=== PATIENT | female | born 1945 | race Caucasian/White ===

== ENCOUNTER 2019-03-24 11:39 | Emergency (ER) | payer MEDICARE, OTHER ==
--- OUTSIDE RECORDS SUMMARY | 2019-03-24 12:58 | XMS REPORT | Continuity of Care Document ---
:1945 External Reference #:[id number] Author Name Yoni Martino M.D. Address [address] [place] [address] Care Team Providers Name Role Phone Ernesto Salcido O.D. - Engine Buildup Mechanic Care Team Information Airplane Electrical Repairer [phone] Su Camara M.D. - Internal Care Team Information Airplane Electrical Repairer [phone] Medicine Problems Active Problems Provider Date Neck pain Yoni Martino M.D. Onset: 03/04/2019 Hypertensive disorder Yoni Martino M.D. Onset: 03/04/2019 Familial combined hyperlipidemia Yoni Martino M.D. Onset: 03/04/2019 Basal cell carcinoma of skin Yoni Martino M.D. Onset: 03/04/2019 Seasonal allergic rhinitis Yoni Martino M.D. Onset: 03/04/2019 Vitreous degeneration Yoni Martino M.D. Onset: 03/04/2019 Combined form of senile cataract Yoni Martino M.D. Onset: 03/04/2019 Social History Type Date Description Comments Sex Unknown ETOH Use Occasionally consumes alcohol Tobacco Use Start: Unknown Patient has never smoked Recreational Drug Use Denies Drug Use Smoking Status Reviewed: 03/04/19 Patient has never smoked Allergies, Adverse Reactions, Alerts Active Allergies Reaction Severity Comments Date NKDA 03/04/2019 Adhesive 03/04/2019 Medications Active Medications SIG Qnty Indications Ordering Provider Date Acetaminophen 2 x per day. Yoni Martino, 03/04/2019 500mg Tablets M.D. Atorvastatin Calcium Unknown 20mg Tablets Vitamin D3-Vitamin C Unknown [id number] Capsules Zyrtec Allergy as needed Unknown 10mg Capsules Vitamin B 12 Unknown 500mcg Tablets Doxycycline Hyclate Unknown 20mg Tablets Fish Oil 1 by mouth every Unknown 1000mg Capsules day Immunizations Description No Information Available Vital Signs Description No Information Available Results Description No Information Available Procedures Description No Information Available Medical Devices Description No Information Available Encounters Description No Information Available Assessments Date Code Description Provider 03/04/2019 H25.813 Combined forms of age-related cataract, Yoni Martino M.D. bilateral 03/04/2019 H43.813 Vitreous degeneration, bilateral Yoni Martino M.D. Plan of Treatment 03/04/2019 - Yoni Martino M.D.H25.813 Combined forms of age-related cataract , bilateralComments:Smoking can increase the risk of developing or worsening any eye related disease, as well as affect your overall health. If you are a smoker, we strongly recommend that you quit.If you are not a smoker, we strongly recommend that you do not start. You have been diagnosed with cataracts. They are limiting your vision, and I am unable to improve you with new glasses. Our next step is to schedule Cataract surgery and all necessary appointments, which Melissa will do for you. We recommend that you write down any questions you may have and bring them to your preoperative appointment so that Dr. Jaimes answer them for you. If you have any questions or concerns, you can reach Melissa Varela at .Follow up:For preop exam before surgery.H43.813 Vitreous degeneration, bilateralComments:You have a Posterior Vitreous Detachment. If you have any changes in your floaters or flashing lights, please contact this office. Functional Status Description No Information Available Mental Status Description No Information Available Referrals Description No Information Available
[2019-03-24 13:02] VITALS: BP 157/91
[2019-03-24] MEDS ORDERED: Albuterol/Ipratropium NEB.SOL* Albuterol 2.5 MG/Ipratropium 0.5 MG 3 ML INH ONE (13:34)
--- NOTE | 2019-03-24 13:47 | UC ---
Respiratory Complaint HPI - HPI Summary HPI Summary: 5 DAYS OF COUGH, NASAL CONGESTION, POSTNASAL DRAINAGE, EAR FULLNESS. FEELS WHEEZY. NO FEVER, NAUSEA/VOMITING. NO BODY ACHES. - History of Current Complaint Chief Complaint: UCGeneralIllness Stated Complaint: HEAD, CHEST CONGESTION, SORE THROAT Time Seen by Provider: 03/24/19 13:20 Hx Obtained From: Patient Onset/Duration: Gradual Onset, Lasting Days, Still Present Timing: Constant Severity Initially: Moderate Severity Currently: Moderate Pain Intensity: 0 Pain Scale Used: 0-10 Numeric Character: Cough: Nonproductive Aggravating Factors: Nothing Alleviating Factors: Nothing Associated Signs And Symptoms: Positive: Wheezing, URI, Nasal Congestion, Sinus Discomfort. Negative: Dyspnea, Fever - Allergies/Home Medications Allergies/Adverse Reactions: Allergies Allergy/AdvReac Type Severity Reaction Status Date / Time Adhesive Tape Allergy Rash Verified 03/24/19 13:03 Home Medications: Home Medications Fluticasone NASAL SPRAY 50MCG* [Flonase NASAL SPRAY 50MCG*] 1 mg BOTH NARES DAILY WITH MEAL 03/24/19 [History Confirmed 03/24/19] PMH/Surg Hx/FS Hx/Imm Hx Endocrine History: Dyslipidemia - Surgical History Surgical History: Yes Surgery Procedure, Year, and Place: HYSTERECTOMY - - Family History Known Family History: Positive: Non-Contributory - Social History Alcohol Use: Occasionally Substance Use Type: None Smoking Status (MU): Never Smoked Tobacco Review of Systems All Other Systems Reviewed And Are Negative: Yes Constitutional: Positive: Fatigue ENT: Positive: Nasal Discharge, Sinus Congestion, Sinus Pain/Tenderness Respiratory: Positive: Cough, Other - WHEEZY Cardiovascular: Positive: Negative Gastrointestinal: Positive: Negative Neurological: Positive: Headache Physical Exam Triage Information Reviewed: Yes Appearance: Well-Appearing, No Pain Distress, Well-Nourished Vital Signs: Initial Vital Signs Temp 97.9 F 03/24/19 12:59 Pulse 87 03/24/19 12:59 Resp 19 03/24/19 12:59 BP 157/91 03/24/19 12:59 Pulse Ox 97 03/24/19 12:59 Vital Signs Reviewed: Yes Eyes: Positive: Conjunctiva Clear ENT: Positive: Hearing grossly normal, Pharynx normal, TMs normal, Sinus tenderness Neck: Positive: Supple, Nontender, No Lymphadenopathy Respiratory Exam: Normal Cardiovascular Exam: Normal Abdomen Description: Positive: Soft Musculoskeletal: Positive: No Edema Neurological: Positive: Alert Psychological: Positive: Age Appropriate Behavior Skin: Negative: Rashes Re-Evaluation - Re-Evaluation First Eval Re-Evaluation Time: 14:15 - FELT BETTER AFTER DUONEB AND PREDNISONE Change: Improved Respiratory Course/Dx - Course Course Of Treatment: PATIENT FELT IMPROVED AFTER A DUONEB TREATMENT AND 40 MG OF PREDNISONE IN THE URGENT CARE. LIKELY VIRALLY MEDIATED SYMPTOMS THAT WILL RESOLVE WITH CONSERVATIVE MANAGEMENT. WILL CONTINUE PREDNISONE FOR 4 MORE DAYS. ALBUTEROL INHALER REFILLED. UPON PATIENT REQUEST HAVE SENT A PRESCRIPTION FOR AZITHROMYCIN FOR HER TO FILL IF SHE DOES NOT FEEL IMPROVED OVER THE NEXT FEW DAYS. FOLLOW-UP WITH PCP IF NEEDED. - Differential Dx/Diagnosis Provider Diagnosis: Acute bronchitis Discharge ED - Sign-Out/Discharge Documenting (check all that apply): Patient Departure All imaging exams completed and their final reports reviewed: No Studies - Discharge Plan Condition: Stable Disposition: HOME Prescriptions: Albuterol HFA INHALER* [Ventolin HFA Inhaler*] 2 puff INH Q4H PRN #1 mdi PRN Reason: Shortness Of Breath Azithromycin 500 mg PO DAILY #5 tablet predniSONE 20 mg TAB [Deltasone 20 MG TAB*] 40 mg PO DAILY #8 tab Patient Education Materials: Acute Bronchitis (ED) Referrals: Su Camara MD [Primary Care Provider] - If Needed Additional Instructions: YOU FELT BETTER AFTER A NEB TREATMENT AND 40MG PREDNISONE HERE IN THE UC. YOUR SYMPTOMS MAY BE VIRALLY MEDIATED BUT GIVEN THE LENGTH OF TIME YOU HAVE BEEN ILL WE WILL PRESCRIBE ANTIBIOTICS FOR YOU TO TAKE IF YOU DO NOT IMPROVE OVER THE NEXT FEW DAYS. REST, HYDRATE, OTC MEDS NEEDED. WILL ALSO CONTINUE PREDNISONE TO HELP WITH AIRWAY INFLAMMATION AND REFILL YOUR INHALER. IF YOU START THE ANTIBIOTIC BE SURE TO TAKE IT FOR THE FULL COURSE. SEEK FOLLOW-UP WITH YOUR PCP IF YOU ARE NOT IMPROVING OVER THE NEXT 1-2 WEEKS. - Billing Disposition and Condition Condition: STABLE Disposition: Home
== END 2019-03-24 14:35 | disposition home or self-care (01) ==
LOC: UCEAST 11:39
DX: J20.9 Acute bronchitis, unspecified (principal); J34.89 Other specified disorders of nose and nasal sinuses; R51 Headache; Z91.09 Other allergy status, other than to drugs and biological substances
CPT/HCPCS: 99212; A9270-GY; G0463; J7512